=== PATIENT | female | born 1985 | race Caucasian/White ===

== ENCOUNTER 2017-07-24 08:56 | Emergency (ER) | payer OTHER ==
[2017-07-24 09:08] VITALS: BP 115/58
--- NOTE | 2017-07-24 09:13 | ER Document Report ---
HPI - HPI Patient complains to provider of: rash Onset: Other - wednesday Pain Level: 4 Context: 31 yo female c/o itchy rash since wednesday, spreading. Worked in yard pulling weeds. Associated Symptoms: None Exacerbated by: Denies Relieved by: Denies Similar symptoms previously: No Recently seen / treated by doctor: No - ROS ROS below otherwise negative: Yes Systems Reviewed and Negative: Yes All other systems reviewed and negative Past Medical History - General Information source: Patient - Social History Smoking Status: Never Smoker Frequency of alcohol use: Occasional Drug Abuse: None Lives with: Family Family History: Reviewed & Not Pertinent - Medical History Medical History: Negative Surgical Hx: Negative - Immunizations Hx Diphtheria, Pertussis, Tetanus Vaccination: Yes Vertical Provider Document - CONSTITUTIONAL Agree With Documented VS: Yes Exam Limitations: No Limitations General Appearance: No Apparent Distress - INFECTION CONTROL TRAVEL OUTSIDE OF THE [place] IN LAST 30 DAYS: No - HEENT HEENT: Normocephalic - NECK Neck: Supple - MUSCULOSKELETAL/EXTREMETIES Musculoskeletal/Extremeties: MAEW - DERM Integumentary: Rash - vesiuclar linear rash right forearm, other scattered areas on body. Course - Vital Signs Vital signs: Temp Pulse Resp BP Pulse Ox 98.4 F 67 16 115/58 L 100 07/24/17 09:06 07/24/17 09:06 07/24/17 09:06 07/24/17 09:06 07/24/17 09:06 Discharge - Discharge Clinical Impression: Poison yuridia Condition: Good Disposition: HOME, SELF-CARE Instructions: Contact Dermatitis ([facility]), Corticosteroid Medication ([facility]), Antihistamines ([facility]), Family Physicians / Practices Additional Instructions: calamine lotion hydroxyzine for itch prednisone for 14 days to er if worse Prescriptions: Hydroxyzine HCl 50 mg PO Q4HP PRN #30 tablet PRN Reason: Prednisone [Deltasone 10 mg Tablet] 10 mg PO ASDIR PRN #42 tablet PRN Reason:
== END 2017-07-24 09:33 | disposition home or self-care (01) ==
LOC: ER 08:56
DX: L23.7 Allergic contact dermatitis due to plants, except food (principal)
CPT/HCPCS: 99282